=== PATIENT | male | born 1990 | race Caucasian/White ===

== ENCOUNTER 2018-09-27 20:20 | Emergency (ER) | payer OTHER, MEDICAID ==
[~2018-09-27] VITALS: Ht 175.3 cm; Wt 73.0 kg
[2018-09-27] MEDS ORDERED: IBUPROFEN 600MG TABLET PO STA (22:49)
[2018-09-27] MEDS ORDERED: LIDOCAINE HCL/PF 1% 10 MG/ML 5ML VIAL IJ ONE (23:00)
[2018-09-27] MEDS ORDERED: BACITRACIN ZINC OINT UDPKT TOP ONE (23:00)
[2018-09-28 01:13] VITALS: BP 120/74
== END 2018-09-28 01:15 | disposition home or self-care (01) ==
LOC: ER 23:14
DX: S61.411A Laceration without foreign body of right hand, initial encounter (principal); W25.XXXA Contact with sharp glass, initial encounter; Y93.89 Activity, other specified; Y92.018 Other place in single-family (private) house as the place of occurrence of the external cause
CPT/HCPCS: 12002; 99283; J3490